=== PATIENT | male | born 1995 | race Caucasian/White ===

== ENCOUNTER 2017-02-08 03:48 | Emergency (ER) | payer OTHER ==
[2017-02-08 04:14] LABS: BASOPHILS % 0.8 (0.0-1.5); EOSINOPHILS % 2.7 % (0.0-6.8); MEAN CORPUSCULAR HEMOGLOBIN 33.1 pg (28.0-34.0); MEAN CORPUSCULAR VOLUME 89.6 fl (80.0-100.0); MONOCYTES % 4.7 % (0.0-11.0); NEUTROPHILS # 5.7 # k/uL (1.4-7.7)
[2017-02-08 04:26] LABS: eGFR (African) > 60; eGFR (Non-African) > 60
--- NOTE | 2017-02-08 04:47 | ED Physician Documentation ---
General Adult - HISTORIAN Historian: patient - HPI Stated Complaint: seizure Chief Complaint: General Adult Further Comments: yes (EMS called to alf for seizure like activity. Patient was found unresponsive in his cell. On arrival to Er patient was post ictal. No loss of bowel or bladder.) - ROS CONST: no problems EYES/ENT: none CVS/RESP: none GI/: none MS/SKIN/LYMPH: none NEURO/PSYCH: denies: headache - PAST HX Past History: other (seizures) Allergies/Adverse Reactions: Allergies Allergy/AdvReac Type Severity Reaction Status Date / Time No Known Allergies Allergy Verified 02/08/17 04:13 Home Medications: Ambulatory Orders Medication Instructions Recorded Oxcarbazepine [Trileptal] 600 mg PO BID 02/08/17 - SOCIAL HX Smoking History: cigarettes - FAMILY HX Family History: No - VITAL SIGNS Vital Signs: Vital Signs Temp Pulse Resp BP Pulse Ox 86 16 101/46 97 02/08/17 03:50 02/08/17 03:50 02/08/17 03:50 02/08/17 03:50 - REVIEWED ASSESSMENTS Nursing Assessment Reviewed: Yes Vitals Reviewed: Yes Progress - Progress Progress: Group Home guards at bedside; patient in hand cuffs. 0450 Patient more awake, can answer questions. Report history of seizures, states he was on Vimpat. Was placed on trileptal with DOC. Has been at [facility] for 105 days, from [facility]. Unclear when medication was changed or reason patient was changed from Vimpat. 0505 Call to [facility], case discussed with Dr Wild, requested neuro consult and observation. Recommended patient be transferred back to [facility] at the alf. 0600 Patient monitored in ER. No seizure activity while in Er. Discharged to [facility]. ED Results Lab/Radiology - Lab Results Lab Results: Lab Results 02/08/17 02/08/17 04:05 04:05 WBC 6.60 K/ul K/ul (4.00-12.00) RBC 4.44 M/ul M/ul (3.90-5.20) Hgb 14.7 g/dL g/dL (12.0-18.0) Hct 39.8 % % (37.0-53.0) MCV 89.6 fl fl (80.0-100.0) MCH 33.1 pg pg (28.0-34.0) MCHC 36.9 g/dL H g/dL (30.0-36.0) RDW 13.2 % % (11.3-14.3) Plt Count 161 K/mm3 K/mm3 (130-400) Neut % (Auto) 86.8 % H % (39.0-79.0) Lymph % (Auto) 4.4 % L % (16.0-50.0) Patrick % (Auto) 4.7 % % (0.0-11.0) Eos % (Auto) 2.7 % % (0.0-6.8) Baso % (Auto) 0.8 (0.0-1.5) Neut # (Auto) 5.7 # k/uL # k/uL (1.4-7.7) Lymph # (Auto) 0.3 # k/uL L # k/uL (0.6-4.0) Patrick # (Auto) 0.3 # k/uL # k/uL (0.0-0.9) Eos # (Auto) 0.2 # k/uL # k/uL (0.0-0.6) Baso # (Auto) 0.0 # k/uL # k/uL (0.0-0.5) Reactive Lymphs % 0.8 % % (0.0-5.0) Reactive Lymphs # 0.0 # k/uL # k/uL (0.0-0.8) Sodium 132 mmol/L L mmol/L (136-145) Potassium 3.7 mmol/L mmol/L (3.5-5.1) Chloride 99 mmol/L mmol/L (98-107) Carbon Dioxide 22 mmol/L mmol/L (22-30) BUN 11 mg/dL mg/dL (9-20) Creatinine 0.80 mg/dL mg/dL (0.66-1.25) Estimated Creat Clear 160 Est GFR ( Amer) > 60 (60 - ) Est GFR (Non-Af Amer) > 60 (60 - ) Glucose 111 mg/dL H mg/dL (74-106) Calcium 9.1 mg/dL mg/dL (8.4-10.2) Total Bilirubin 0.4 mg/dL mg/dL (0.2-1.3) AST 31 U/L U/L (15-46) ALT 78 U/L H U/L (13-69) Alkaline Phosphatase 103 U/L U/L (38-126) Total Protein 6.9 g/dL g/dL (6.3-8.2) Albumin 4.3 g/dL g/dL (3.5-5.0) - Orders Orders: ED Orders Category Date Time Status CBC/PLATELET/DIFF Routine Lab 02/08/17 04:05 Completed CMP Routine Lab 02/08/17 04:05 Completed INFLUENZA A&B Stat Lab 02/08/17 04:14 Ordered General Adult Physical Exam - PHYSICAL EXAM GENERAL APPEARANCE: sleepy EENT: eye inspection normal, ENT inspection normal, pharynx normal, no signs of dehydration, ALIYAH, no nystagmus, TM's nml RESPIRATORY: no resp distress, chest non-tender, breath sounds normal CVS: reg rate & rhythm, heart sounds normal, equal pulses, no murmur, no gallop , PMI nml, no JVD, no friction rub, 24 ABDOMEN: soft, no organomegaly, normal bowel sounds, no abdominal bruit, no distension SKIN: normal color, warm/dry, NR, INT, PAL, DR EXTREMITIES: non-tender, normal range of motion, no evidence of injury, no edema , J, [employer] NEURO: oriented X3, CN's nml as tested, motor nml, sensation nml, mood/affect nml Discharge Clincal Impression: Breakthrough seizure Referrals: Primary Doctor,No [Primary Care Provider] - 2 Days Additional Instructions: Recommend monitoring in infirm for 24 hours. Carbamazepine level sent out. Patient reported previously being on Vimpat - consider placing patient back on Vimpat. Condition: Stable Disposition: HOME, SELF-CARE Decision to Admit: NO Decision Time: 05:28
[2017-02-08 06:06] VITALS: BP 107/62
== END 2017-02-08 06:00 | disposition home or self-care (01) ==
LOC: ED 03:48
DX: G40.89 Other seizures (principal)
CPT/HCPCS: 80053; 80156; 85025; 87400; 99282; 99283